=== PATIENT | female | born 1980 | race Caucasian/White ===

== ENCOUNTER 2016-10-21 09:37 | Observation (INO) | payer OTHER ==
[~2016-10-21] VITALS: Ht 175.3 cm; Wt 145.4 kg
[~2016-10-21 09:37] MED LIST: ADULT LOW DOSE81 M1 PO; AFRIN,GENASAL D15 ML BOTH NARES; AMITRIPTYLINE H25 MG PO; AMITRIPTYLINE H75 MG PO; ANAPROX DS550 M1 PO; ASACOL HD800 MG PO; ASPIR 8181 M1 PO; AUGMENTIN875 MG PO; BENICAR5 MG PO; BENTYL10 MG PO; BENTYL20 MG PO; BUTALB-APAP-CA1 EACH PO; CLONAZEPAM1 MG PO; COUMADIN1 MG PO; COUMADIN5 MG PO; CYCLOBENZAPRINE10 MG PO; Coumadin,Jantoven PO; DAILY VITE1 EAC1 PO; DICYCLOMINE HCL10 MG PO; DICYCLOMINE HCL20 MG PO; DILAUDID1 MG/ML IV; DILAUDID4 MG PO; ENDOCET 5-3251 EACH PO; FIORICET WI1 CAPSULE PO; FLAGYL500 MG PO; FLEXERIL10 MG PO; GABAPENTIN300 MG PO; GENERLAC10 GM/15 M PO; HYDROCHLOROTH12.5 M3 PO; HYDROMORPHONE HC4 MG PO; IBUPROFEN800 MG PO; KLONOPIN1 MG PO; LIDODERM 5% P1 PATCH TD; LO-DOSE ASPIRIN81 M2 PO; LOSARTAN-HCTZ1 EAC1; LOVENOX120 MG/0.8; LOVENOX150 MG/1 M SC; LOVENOX40 MG/0.4 SC; Lovenox SC; MS CONTIN,ORAMO15 M1 PO; NOHOMEMEDS; NORCO 5/3251 TABLET PO; NORCO 7.5/321 TABLET PO; OMEPRAZOLE20 MG PO; OXYCODONE-APAP1 EACH PO; PANTOPRAZOLE SO40 MG PO; PENTASA250 MG PO; PERCOCET 5/31 TABLET PO; PREDNISONE10 MG PO; PREDNISONE20 MG PO; PROZAC20 MG PO; SENNA PLUS TAB1 EACH PO; SIMVASTATIN20 MG PO; TESSALON PERLE100 MG PO; TOPAMAX50 MG; TYLENOL WITH C1 EACH PO; ULTRAM50 MG PO; VENTOLIN HFA18 GM IH; VIBRAMYCIN100 MG PO; VICODIN,LORT1 TABLET PO; WARFARIN SODIUM10 MG; WARFARIN SODIUM10 MG PO; ZOFRAN ODT4 MG PO; ZOFRAN ODT8 MG PO; ZOFRAN8 MG PO
[2016-10-21 10:06] LABS: ADD MIUA? YES; BILIRUBIN NEGATIVE; BLOOD TRACE; COLOR YELLOW ((YELLOW)); GLUCOSE (STRIP) NEGATIVE; KETONES NEGATIVE; LEUKOCYTES NEGATIVE; NITRITE NEGATIVE; PROTEIN (STRIP) NEGATIVE; SPECIFIC GRAVITY 1.024 (1.000-1.030); UROBILINOGEN 0.2 MG/DL (0.2-1.0)
[2016-10-21 10:19] LABS: BACTERIA 1+; CASTS NONE SEEN /LPF; CRYSTALS NONE SEEN; EPITHELIAL CELLS 2+; MUCUS NONE SEEN; PATHOLOGICAL CAST NONE SEEN; RED BLOOD CELLS 0-5 /HPF (0-5); SMALL ROUND CELL NONE SEEN; UCUL ADDED? NO; WHITE BLOOD CELLS 0-5 /HPF (0-5); YEAST-LIKE CELL NONE SEEN
[2016-10-21 10:47] LABS: INTER. NORMALIZED RATIO 1.1; PROTHROMBIN TIME 10.8 (9.2-11.2); PTT 27.1 (25-32)
[2016-10-21 10:49] LABS: HEMATOCRIT 38.6 % (36.0-46.0); MCH 29.2 PG (29.0-34.0); MCHC 33.4 G/DL (30.0-36.0); MCV 87.3 FL (83-99); MEAN PLAT.VOLUME 9.7 uM^3 (9.5-12.4); PLATELET COUNT 368 K/uL (156-360); RBC DIS.WIDTH-CV 14.4 % (11.8-14.6); RBC DIS.WIDTH-SD 45.7 % (39-53); RED BLOOD COUNT 4.42 M/uL (3.80-5.20); WHITE BLOOD COUNT 9.4 K/uL (4.1-10.2)
[2016-10-21 10:50] LABS: CHLORIDE 104 mEq/L (99-109); POTASSIUM 4.1 mEq/L (3.7-5.4); SODIUM 136 mEq/L (136-147)
[2016-10-21 10:53] LABS: GLUCOSE 129 mg/dL (70-99)
[2016-10-21 10:54] LABS: ANION GAP 11 MEQ/L (2-14)
[2016-10-21 10:55] LABS: TOTAL BILIRUBIN 0.3 mg/dL (0.0-1.0)
[2016-10-21 10:56] LABS: ALKALINE PHOSPHATASE 60 IU/L (3-129); GFR ESTIMATE (CALCULATED) > 59 mL/min/
[2016-10-21 10:57] LABS: UREA NITROGEN (BUN) 14 mg/dL (9-23)
[2016-10-21 11:09] LABS: QUANTITATIVE HCG < 4.0 MIU/ML
[2016-10-21 12:39] LABS: INFLUENZA A VIRAL ANTIGEN NEGATIVE; INFLUENZA B VIRAL ANTIGEN NEGATIVE
[2016-10-21] MEDS ORDERED: DIAZEPAM5 MG PO (16:06)
[2016-10-21] MEDS ORDERED: LITHIUM CARBON300 MG PO (16:06)
[2016-10-21] MEDS ORDERED: ASACOL HD800 MG PO (16:06)
[2016-10-21] MEDS ORDERED: PROTONIX40 MG PO (16:06)
[2016-10-21] MEDS ORDERED: OXYCODONE HCL5 MG PO (16:06)
[2016-10-21 21:12] VITALS: BP 137/78
[2016-10-22 04:31] VITALS: BP 134/60
[2016-10-22 06:18] LABS: INTER. NORMALIZED RATIO 1.1; PROTHROMBIN TIME 11.5 (9.2-11.2)
[2016-10-22 06:38] LABS: ANION GAP 12 MEQ/L (2-14); CHLORIDE 107 MEQ/L (99-109); GFR ESTIMATE (CALCULATED) > 59 mL/min/; GLUCOSE 108 mg/dL (70-99); SAMPLE HEMOLYSIS CHECK 0; SAMPLE ICTERIC CHECK 0; SAMPLE LIPEMIA CHECK 0; SODIUM 137 MEQ/L (136-147); UREA NITROGEN (BUN) 17 mg/dL (9-23)
[2016-10-22 08:45] VITALS: BP 130/72
[2016-10-22 12:53] VITALS: BP 132/65
[2016-10-22 16:15] VITALS: BP 138/75
[2016-10-22 20:00] VITALS: BP 133/70
[2016-10-23 04:54] VITALS: BP 139/66
[2016-10-23 06:26] LABS: INTER. NORMALIZED RATIO 1.2; PROTHROMBIN TIME 12.6 (9.2-11.2)
[2016-10-23 08:55] VITALS: BP 135/65
[2016-10-23 12:04] VITALS: BP 125/68
[2016-10-23] MEDS ORDERED: PRAVASTATIN SOD40 MG PO (12:49)
[2016-10-23] MEDS ORDERED: OXYCODONE-APAP1 EACH PO (12:49)
[2016-10-23] MEDS ORDERED: TOPIRAMATE25 MG PO (12:49)
[2016-10-23] MEDS ORDERED: LOVENOX150 MG/1 M SC (13:10)
[2016-10-23] MEDS ORDERED: COUMADIN10 MG PO (13:10)
[2016-10-23] MEDS ORDERED: COUMADIN2.5 MG PO (13:10)
== END 2016-10-23 14:58 | disposition home or self-care (01) ==
LOC: EME 09:37 → EDOF 15:58 → 5WEST 15:58
PROVIDERS: Family Medicine; Hospitalist; Nurse Practitioner Family
DX: G43.019 Migraine without aura, intractable, without status migrainosus (principal); R55 Syncope and collapse; G89.29 Other chronic pain; R10.13 Epigastric pain; K52.9 Noninfective gastroenteritis and colitis, unspecified; I69.354 Hemiplegia and hemiparesis following cerebral infarction affecting left non-dominant side; M32.9 Systemic lupus erythematosus, unspecified; D68.61 Antiphospholipid syndrome; Z79.01 Long term (current) use of anticoagulants; Z87.891 Personal history of nicotine dependence; E66.9 Obesity, unspecified; Z68.42 Body mass index [BMI] 45.0-49.9, adult; G40.909 Epilepsy, unspecified, not intractable, without status epilepticus
CPT/HCPCS: 70450; 70544; 80048; 80053; 81003; 84702; 85027; 85610; 85730; 87502; 87641; 93306; 99202; 99281; 99285; G0378; J1170; J1200; J1650; J1885; J2270; J2765; J2930; J7030

== ENCOUNTER 2017-01-17 14:29 | Emergency (ER) | payer OTHER ==
[~2017-01-17] VITALS: Ht 175.3 cm; Wt 143.4 kg
[~2017-01-17 14:29] MED LIST changes: +COUMADIN10 MG PO; +COUMADIN2.5 MG PO; +DIAZEPAM5 MG PO; +LITHIUM CARBON300 MG PO; +OXYCODONE HCL5 MG PO; +PRAVASTATIN SOD40 MG PO; +PROTONIX40 MG PO; +TOPIRAMATE25 MG PO
[2017-01-17] MEDS ORDERED: NAPROSYN500 MG PO (17:13)
[2017-01-17 17:34] VITALS: BP 149/91
== END 2017-01-17 17:44 | disposition home or self-care (01) ==
LOC: EME 14:29
DX: S93.601A Unspecified sprain of right foot, initial encounter (principal); S93.501A Unspecified sprain of right great toe, initial encounter; X50.0XXA Overexertion from strenuous movement or load, initial encounter
CPT/HCPCS: 73630; 99281; 99284

== ENCOUNTER 2017-03-21 21:38 | Inpatient (IN) | payer OTHER ==
[~2017-03-21] VITALS: Ht 175.3 cm; Wt 148.8 kg
[~2017-03-21 21:38] MED LIST changes: +NAPROSYN500 MG PO
[2017-03-21 22:26] LABS: CREATININE 0.8 mg/dL (0.6-1.3); POTASSIUM 3.6 mEq/L (3.7-5.4)
[2017-03-21 22:34] LABS: BASOPHIL COUNT 0.1 K/uL (0-0.1); EOSINOPHIL (%) 1.3 % (0-5); EOSINOPHIL COUNT 0.2 K/uL (0-0.3); HEMATOCRIT 37.2 % (36.0-46.0); IMMATURE GRANULOCYTE (%) 0.5 % (0.0-0.7); IMMATURE GRANULOCYTE COUNT 0.1 K/uL; LYMPHOCYTE COUNT 3.6 K/uL (1.0-2.8); MCH 27.6 PG (29.0-34.0); MCHC 32.3 G/DL (30.0-36.0); MCV 85.5 FL (83-99); MEAN PLAT.VOLUME 9.1 uM^3 (9.5-12.4); MONOCYTE (%) 9.2 % (3-12); MONOCYTE COUNT 1.1 K/uL (0-0.8); NEUTROPHIL (%) 58.5 % (45-76); PLATELET COUNT 394 K/uL (156-360); RBC DIS.WIDTH-CV 12.8 % (11.8-14.6); RBC DIS.WIDTH-SD 39.6 % (39-53); RED BLOOD COUNT 4.35 M/uL (3.80-5.20)
[2017-03-21 22:51] LABS: CHLORIDE 106 mEq/L (99-109); PROTHROMBIN TIME 9.8 (9.2-11.2); PTT 25.6 (25-32); SODIUM 139 mEq/L (136-147)
[2017-03-21 22:53] LABS: GLUCOSE 98 mg/dL (70-99)
[2017-03-21 22:54] LABS: ANION GAP 10 MEQ/L (2-14)
[2017-03-21 22:56] LABS: GFR ESTIMATE (CALCULATED) > 59 mL/min/
[2017-03-21 22:57] LABS: UREA NITROGEN (BUN) 16 mg/dL (9-23)
[2017-03-21 23:13] LABS: HDL CHOLESTEROL 39 MG/DL (Desirable>=50); LDL CHOLESTEROL 117 mg/dL (Desirable<100); NON-HDL CHOLESTEROL 149 mg/dL (Desirable<160); SAMPLE HEMOLYSIS CHECK 1; SAMPLE ICTERIC CHECK 0; SAMPLE LIPEMIA CHECK 0; TOTAL CHOLESTEROL 188 mg/dL (Desirable<200); TRIGLYCERIDES 162 MG/DL (Normal: <150)
[2017-03-22] MEDS ORDERED: LITHIUM CARBON600 MG PO (00:53)
[2017-03-22] MEDS ORDERED: ALPRAZOLAM1 MG PO (00:53)
[2017-03-22 04:40] LABS: AMPHETAMINES QUANT VALUE 0 NG/ML; BARBITUATES QUANT VALUE 0 NG/ML; BENZODIAZEPINES, URINE SCREEN POSITIVE (200 ng/mL); MARIJUANA QUANT VALUE 0 NG/ML; OPIATES QUANTITATIVE VALUE 0 NG/ML; PHENCYCLIDINE QUANT VALUE 0 NG/ML
[2017-03-22 06:41] LABS: Estimated Average Glucose 111 mg/dL (70-123); HEMOGLOBIN A1c (GLYCOHEMOGLOB) 5.5 % HGB (Below 5.7)
[2017-03-22 14:44] VITALS: BP 135/83
[2017-03-22 19:40] VITALS: BP 132/70
[2017-03-22 23:39] VITALS: BP 141/72
[2017-03-23 03:29] VITALS: BP 114/65
[2017-03-23 06:06] LABS: BASOPHIL COUNT 0.1 K/uL (0-0.1); EOSINOPHIL (%) 2.1 % (0-5); EOSINOPHIL COUNT 0.2 K/uL (0-0.3); HEMATOCRIT 35.4 % (36.0-46.0); IMMATURE GRANULOCYTE (%) 0.4 % (0.0-0.7); INSTRUMENT ABS NEUTROPHIL CT 4.6 K/uL; LYMPHOCYTE COUNT 3.9 K/uL (1.0-2.8); MCH 28.1 PG (29.0-34.0); MCHC 32.5 G/DL (30.0-36.0); MCV 86.6 FL (83-99); MEAN PLAT.VOLUME 9.2 uM^3 (9.5-12.4); MONOCYTE (%) 7.2 % (3-12); MONOCYTE COUNT 0.7 K/uL (0-0.8); NEUTROPHIL (%) 48.6 % (45-76); NEUTROPHIL COUNT 4.6 K/uL (1.8-6.4); PLATELET COUNT 365 K/uL (156-360); RBC DIS.WIDTH-SD 40.5 % (39-53); RED BLOOD COUNT 4.09 M/uL (3.80-5.20); WHITE BLOOD COUNT 9.5 K/uL (4.1-10.2)
[2017-03-23 06:31] LABS: ANION GAP 6 MEQ/L (2-14); CHLORIDE 105 MEQ/L (99-109); GFR ESTIMATE (CALCULATED) > 59 mL/min/; GLUCOSE 85 mg/dL (70-99); MAGNESIUM 1.9 mg/dl (1.3-2.7); SAMPLE HEMOLYSIS CHECK 0; SAMPLE ICTERIC CHECK 0; SAMPLE LIPEMIA CHECK 0; SODIUM 138 MEQ/L (136-147); UREA NITROGEN (BUN) 16 mg/dL (9-23)
[2017-03-23 08:23] VITALS: BP 117/84
[2017-03-23] MEDS ORDERED: PRAVASTATIN SOD40 MG PO (09:59)
[2017-03-23] MEDS ORDERED: ASPIR-LOW81 MG PO (09:59)
[2017-03-23] MEDS ORDERED: TOPIRAMATE25 MG PO (10:00)
[2017-03-23 11:54] VITALS: BP 122/83
== END 2017-03-23 15:13 | disposition home or self-care (01) | DRG 103 ==
LOC: EME 21:38 → EDOF 03-22 01:25 → 5SOUTH 03-22 01:25
PROVIDERS: Emergency Medicine; Hospitalist; Internal Medicine
DX: G43.009 Migraine without aura, not intractable, without status migrainosus (principal); G40.909 Epilepsy, unspecified, not intractable, without status epilepticus; E66.01 Morbid (severe) obesity due to excess calories; I10 Essential (primary) hypertension; E78.5 Hyperlipidemia, unspecified; G89.4 Chronic pain syndrome; R47.82 Fluency disorder in conditions classified elsewhere; M06.9 Rheumatoid arthritis, unspecified; F11.20 Opioid dependence, uncomplicated; R76.0 Raised antibody titer; G93.89 Other specified disorders of brain; Z79.01 Long term (current) use of anticoagulants; Z68.42 Body mass index [BMI] 45.0-49.9, adult; I69.354 Hemiplegia and hemiparesis following cerebral infarction affecting left non-dominant side
CPT/HCPCS: 70450; 70496; 70498; 70551; 80047; 80048; 80061; 80178; 80306 90; 83036; 83735; 85025; 85610; 85730; 92523 GN; 95819; 99202; 99281; 99285; J1200; J1650; J1885; J2765; J7030

== ENCOUNTER 2017-05-29 14:30 | Inpatient (IN) | payer OTHER ==
[~2017-05-29] VITALS: Ht 175.3 cm; Wt 143.0 kg
[~2017-05-29 14:30] MED LIST changes: +ALPRAZOLAM1 MG PO; +ASPIR-LOW81 MG PO; +LITHIUM CARBON600 MG PO
[2017-05-29 16:37] LABS: HEMATOCRIT 36.9 % (36.0-46.0); MCHC 31.4 G/DL (30.0-36.0); PLATELET COUNT 436 K/uL (156-360); RBC DIS.WIDTH-CV 13.9 % (11.8-14.6); RED BLOOD COUNT 4.29 M/uL (3.80-5.20); WHITE BLOOD COUNT 12.9 K/uL (4.1-10.2)
[2017-05-29 16:46] LABS: CHLORIDE 105 mEq/L (99-109); POTASSIUM 3.9 mEq/L (3.7-5.4); SODIUM 139 mEq/L (136-147)
[2017-05-29 16:48] LABS: GLUCOSE 97 mg/dL (70-99)
[2017-05-29 16:50] LABS: ANION GAP 11 MEQ/L (2-14)
[2017-05-29 16:52] LABS: GFR ESTIMATE (CALCULATED) > 59 mL/min/
[2017-05-29 16:53] LABS: UREA NITROGEN (BUN) 13 mg/dL (9-23)
[2017-05-29 17:00] LABS: TROP-I INTERPRETATION NEGATIVE; TROPONIN-I < 0.01 ng/mL (0.0-0.30)
[2017-05-29 20:19] LABS: PROTHROMBIN TIME 10.9 SEC (10.2-12.9)
[2017-05-29 20:22] LABS: PTT 26.8 SEC (25-37)
[2017-05-29 20:41] LABS: HDL CHOLESTEROL 42 MG/DL (Desirable>=50); LDL CHOLESTEROL 114 mg/dL (Desirable<100); NON-HDL CHOLESTEROL 144 mg/dL (Desirable<160); TOTAL CHOLESTEROL 186 mg/dL (Desirable<200); TRIGLYCERIDES 149 MG/DL (Normal: <150)
[2017-05-29 21:25] VITALS: BP 170/86
[2017-05-30] VITALS: BP 132/70
[2017-05-30 03:53] VITALS: BP 150/67
[2017-05-30 06:37] LABS: HEMATOCRIT 35.6 % (36.0-46.0); MCH 27.6 PG (29.0-34.0); MCHC 31.7 G/DL (30.0-36.0); MEAN PLAT.VOLUME 9.4 uM^3 (9.5-12.4); PLATELET COUNT 413 K/uL (156-360); RBC DIS.WIDTH-CV 13.8 % (11.8-14.6); RBC DIS.WIDTH-SD 43.1 % (39-53); RED BLOOD COUNT 4.09 M/uL (3.80-5.20); WHITE BLOOD COUNT 11.1 K/uL (4.1-10.2)
[2017-05-30 06:45] LABS: INTER. NORMALIZED RATIO 1.1; PROTHROMBIN TIME 11.7 SEC (10.2-12.9)
[2017-05-30 07:12] LABS: Estimated Average Glucose 108 mg/dL (70-123); HEMOGLOBIN A1c (GLYCOHEMOGLOB) 5.4 % HGB (Below 5.7)
[2017-05-30 08:32] VITALS: BP 130/77
[2017-05-30] MEDS ORDERED: BUPROPION XL150 MG PO (14:17)
[2017-05-30] MEDS ORDERED: OXYCODONE HCL5 MG PO (14:17)
[2017-05-30 17:42] VITALS: BP 133/72
[2017-05-30 19:45] VITALS: BP 141/78
[2017-05-31 00:15] VITALS: BP 146/85
[2017-05-31 06:38] LABS: BASOPHIL COUNT 0.1 K/uL (0-0.1); EOSINOPHIL (%) 2.9 % (0-5); EOSINOPHIL COUNT 0.3 K/uL (0-0.3); HEMATOCRIT 37.3 % (36.0-46.0); IMMATURE GRANULOCYTE (%) 0.5 % (0.0-0.7); IMMATURE GRANULOCYTE COUNT 0.1 K/uL; INSTRUMENT ABS NEUTROPHIL CT 5.7 K/uL; LYMPHOCYTE COUNT 4.2 K/uL (1.0-2.8); MCH 27.6 PG (29.0-34.0); MCHC 32.2 G/DL (30.0-36.0); MCV 85.7 FL (83-99); MEAN PLAT.VOLUME 9.1 uM^3 (9.5-12.4); MONOCYTE (%) 7.5 % (3-12); MONOCYTE COUNT 0.8 K/uL (0-0.8); NEUTROPHIL (%) 50.8 % (45-76); NEUTROPHIL COUNT 5.7 K/uL (1.8-6.4); PLATELET COUNT 409 K/uL (156-360); RBC DIS.WIDTH-CV 13.5 % (11.8-14.6); RBC DIS.WIDTH-SD 41.9 % (39-53); RED BLOOD COUNT 4.35 M/uL (3.80-5.20); WHITE BLOOD COUNT 11.2 K/uL (4.1-10.2)
[2017-05-31 07:03] LABS: ANION GAP 9 MEQ/L (2-14); CHLORIDE 102 MEQ/L (99-109); GFR ESTIMATE (CALCULATED) > 59 mL/min/; GLUCOSE 88 mg/dL (70-99); IRON 31 MCG/DL (35-150); POTASSIUM 4.2 MEQ/L (3.7-5.4); SAMPLE HEMOLYSIS CHECK 0; SAMPLE ICTERIC CHECK 0; SAMPLE LIPEMIA CHECK 0; SODIUM 138 MEQ/L (136-147); UREA NITROGEN (BUN) 13 mg/dL (9-23)
[2017-05-31 07:50] VITALS: BP 130/64
[2017-05-31] MEDS ORDERED: CYCLOBENZAPRINE5 MG PO (11:23)
[2017-05-31] MEDS ORDERED: GABAPENTIN300 MG PO (11:24)
[2017-05-31 11:30] VITALS: BP 139/86
== END 2017-05-31 13:22 | disposition home or self-care (01) | DRG 103 ==
LOC: EME 14:30 → 5SOUTH 19:49 → EDOF 19:49 → ENRESERV 19:50 → CANRESERV 20:05 → ENRESERV 20:05 → 5SOUTH 21:16 → ENRESERV 21:16 → 5SOUTH 05-31 13:22
PROVIDERS: Anesthesiology; Emergency Medicine; Hospitalist; Nurse Practitioner Adult Health
DX: G43.919 Migraine, unspecified, intractable, without status migrainosus (principal); D68.61 Antiphospholipid syndrome; R47.81 Slurred speech; G93.89 Other specified disorders of brain; G40.909 Epilepsy, unspecified, not intractable, without status epilepticus; D64.9 Anemia, unspecified; K58.9 Irritable bowel syndrome, unspecified; I25.10 Atherosclerotic heart disease of native coronary artery without angina pectoris; H53.8 Other visual disturbances; M54.2 Cervicalgia; M54.6 Pain in thoracic spine; M79.1 Myalgia; E66.9 Obesity, unspecified; Z68.42 Body mass index [BMI] 45.0-49.9, adult; F17.200 Nicotine dependence, unspecified, uncomplicated; Z79.01 Long term (current) use of anticoagulants; Z79.82 Long term (current) use of aspirin; Z82.49 Family history of ischemic heart disease and other diseases of the circulatory system; Z86.73 Personal history of transient ischemic attack (TIA), and cerebral infarction without residual deficits; Z91.19 Patient's noncompliance with other medical treatment and regimen
CPT/HCPCS: 70450; 70551; 80048; 80061; 82272; 83036; 83540; 84466; 84484; 85025; 85027; 85610; 85730; 93005; 93880; 99281; 99283; J1200; J1650; J2765; J7030

== ENCOUNTER 2017-07-10 18:03 | Emergency (ER) | payer OTHER ==
[~2017-07-10] VITALS: Ht 175.3 cm; Wt 148.7 kg
[~2017-07-10 18:03] MED LIST changes: +BUPROPION XL150 MG PO; +CYCLOBENZAPRINE5 MG PO
[2017-07-10] MEDS ORDERED: VALIUM5 MG PO (19:11)
[2017-07-10] MEDS ORDERED: PREDNISONE10 MG PO (19:11)
[2017-07-10 19:19] VITALS: BP 130/78
== END 2017-07-10 19:20 | disposition home or self-care (01) ==
LOC: EME 18:03
DX: M54.41 Lumbago with sciatica, right side (principal); D68.61 Antiphospholipid syndrome; M06.9 Rheumatoid arthritis, unspecified; F17.200 Nicotine dependence, unspecified, uncomplicated
CPT/HCPCS: 99281; 99283; J1100; J1885

== ENCOUNTER 2017-11-19 15:51 | Inpatient (IN) | payer OTHER ==
[~2017-11-19] VITALS: Ht 172.7 cm; Wt 147.5 kg
[~2017-11-19 15:51] MED LIST changes: -BUPROPION XL150 MG PO; +VALIUM5 MG PO; +WELLBUTRIN XL300 MG PO
[2017-11-19 16:52] LABS: BASOPHIL (%) 1.1 % (0-1); BASOPHIL COUNT 0.1 K/uL (0-0.1); EOSINOPHIL (%) 0.4 % (0-5); HEMATOCRIT 33.6 % (36.0-46.0); HEMOGLOBIN 10.1 G/DL (11.9-15.5); IMMATURE GRANULOCYTE (%) 0.2 % (0.0-0.7); LYMPHOCYTE (%) 33.5 % (15-42); LYMPHOCYTE COUNT 1.5 K/uL (1.0-2.8); MCH 23.8 PG (29.0-34.0); MCHC 30.1 G/DL (30.0-36.0); MCV 79.2 FL (83-99); MONOCYTE (%) 15.6 % (3-12); MONOCYTE COUNT 0.7 K/uL (0-0.8); NEUTROPHIL (%) 49.2 % (45-76); NEUTROPHIL COUNT 2.2 K/uL (1.8-6.4); PLATELET COUNT 369 K/uL (156-360); RBC DIS.WIDTH-CV 14.9 % (11.8-14.6); RBC DIS.WIDTH-SD 42.8 % (39-53); RED BLOOD COUNT 4.24 M/uL (3.80-5.20); WHITE BLOOD COUNT 4.5 K/uL (4.1-10.2)
[2017-11-19 17:08] LABS: ALBUMIN 3.6 G/DL (3.2-4.8); CHLORIDE 105 MEQ/L (99-109); POTASSIUM 3.9 MEQ/L (3.7-5.4); SODIUM 139 MEQ/L (136-147); TOTAL BILIRUBIN 0.3 MG/DL (0.0-1.0)
[2017-11-19 17:14] LABS: ALKALINE PHOSPHATASE 48 IU/L (3-129); ALT (GPT) 24 IU/L (3-49); AST (GOT) 20 IU/L (2-34); CREATININE 0.7 MG/DL (0.6-1.3); GFR ESTIMATE (CALCULATED) > 59 mL/min/; GLUCOSE 91 mg/dL (70-99); TOTAL PROTEIN 6.5 G/DL (6.4-8.3); UREA NITROGEN (BUN) 9 mg/dL (9-23)
[2017-11-19 17:18] LABS: QUANTITATIVE HCG < 4.0 MIU/ML
[2017-11-19] MEDS ORDERED: PRAVACHOL40 MG PO (20:17)
[2017-11-19] MEDS ORDERED: TOPAMAX50 MG PO (20:18)
[2017-11-19] MEDS ORDERED: AMBIEN5 MG PO (20:19)
[2017-11-19 20:39] LABS: TROP-I INTERPRETATION NEGATIVE; TROPONIN-I < 0.01 ng/mL (0.0-0.30)
[2017-11-19 23:40] VITALS: BP 139/91
[2017-11-20 02:35] LABS: APPEARANCE SL.HAZY ((CLEAR)); BILIRUBIN NEGATIVE; BLOOD NEGATIVE; COLOR YELLOW ((YELLOW)); GLUCOSE (STRIP) >=500; KETONES 5; LEUKOCYTES NEGATIVE; NITRITE NEGATIVE; PROTEIN (STRIP) 30; UROBILINOGEN 0.2 MG/DL (0.2-1.0)
[2017-11-20 02:49] LABS: SPECIFIC GRAVITY 1.071 (1.000-1.030)
[2017-11-20 02:52] LABS: EPITHELIAL CELLS RARE /HPF; MUCUS RARE /LPF; RED BLOOD CELLS NONE SEEN /HPF (0-5); WHITE BLOOD CELLS 0-5 /HPF (0-5)
[2017-11-20 02:53] LABS: BACTERIA 1+ /HPF; UCUL ADDED? NO
[2017-11-20 03:24] VITALS: BP 111/56
[2017-11-20 07:05] LABS: BASOPHIL (%) 0.4 % (0-1); EOSINOPHIL (%) 0 % (0-5); HEMATOCRIT 35.8 % (36.0-46.0); HEMOGLOBIN 10.5 G/DL (11.9-15.5); IMMATURE GRANULOCYTE (%) 1.3 % (0.0-0.7); LYMPHOCYTE (%) 16.4 % (15-42); LYMPHOCYTE COUNT 0.9 K/uL (1.0-2.8); MCH 23.8 PG (29.0-34.0); MCHC 29.3 G/DL (30.0-36.0); MONOCYTE (%) 3.2 % (3-12); MONOCYTE COUNT 0.2 K/uL (0-0.8); NEUTROPHIL (%) 78.7 % (45-76); NEUTROPHIL COUNT 4.2 K/uL (1.8-6.4); PLATELET COUNT 462 K/uL (156-360); RBC DIS.WIDTH-CV 14.8 % (11.8-14.6); RBC DIS.WIDTH-SD 43.6 % (39-53); RED BLOOD COUNT 4.42 M/uL (3.80-5.20); WHITE BLOOD COUNT 5.4 K/uL (4.1-10.2)
[2017-11-20 07:35] LABS: CHLORIDE 106 MEQ/L (99-109); CREATININE 0.6 MG/DL (0.6-1.3); GFR ESTIMATE (CALCULATED) > 59 mL/min/; SODIUM 141 MEQ/L (136-147); UREA NITROGEN (BUN) 11 mg/dL (9-23)
[2017-11-20 07:36] LABS: GLUCOSE 138 mg/dL (70-99); POTASSIUM 4.7 MEQ/L (3.7-5.4)
[2017-11-20 08:00] VITALS: BP 130/72
[2017-11-20 12:00] VITALS: BP 122/58
[2017-11-20 16:00] VITALS: BP 127/77
[2017-11-20 23:15] VITALS: BP 129/60
[2017-11-21 05:58] LABS: BASOPHIL (%) 0.1 % (0-1); EOSINOPHIL (%) 0 % (0-5); HEMOGLOBIN 10.1 G/DL (11.9-15.5); IMMATURE GRANULOCYTE (%) 0.9 % (0.0-0.7); LYMPHOCYTE (%) 15.1 % (15-42); LYMPHOCYTE COUNT 1.6 K/uL (1.0-2.8); MCH 23.8 PG (29.0-34.0); MCHC 29.7 G/DL (30.0-36.0); MONOCYTE (%) 4.9 % (3-12); MONOCYTE COUNT 0.5 K/uL (0-0.8); NEUTROPHIL COUNT 8.2 K/uL (1.8-6.4); PLATELET COUNT 491 K/uL (156-360); RBC DIS.WIDTH-CV 14.7 % (11.8-14.6); RBC DIS.WIDTH-SD 42.5 % (39-53); RED BLOOD COUNT 4.25 M/uL (3.80-5.20); WHITE BLOOD COUNT 10.4 K/uL (4.1-10.2)
[2017-11-21 06:42] LABS: CHLORIDE 107 MEQ/L (99-109); CREATININE 0.7 MG/DL (0.6-1.3); GFR ESTIMATE (CALCULATED) > 59 mL/min/; POTASSIUM 4.3 MEQ/L (3.7-5.4); SODIUM 143 MEQ/L (136-147); UREA NITROGEN (BUN) 10 mg/dL (9-23)
[2017-11-21 06:44] LABS: GLUCOSE 219 mg/dL (70-99)
[2017-11-21 07:05] VITALS: BP 138/65
[2017-11-21 16:13] VITALS: BP 165/86
[2017-11-21 22:33] VITALS: BP 137/78
[2017-11-22 07:59] VITALS: BP 168/74
[2017-11-22 15:28] VITALS: BP 145/78
[2017-11-22 20:00] VITALS: BP 140/70
[2017-11-22 23:57] VITALS: BP 130/77
[2017-11-23 03:52] VITALS: BP 135/78
[2017-11-23 08:53] VITALS: BP 132/78
[2017-11-23 12:00] VITALS: BP 119/56
[2017-11-23] MEDS ORDERED: AMOX TR-K CLV1 EAC4 PO (13:01)
[2017-11-23] MEDS ORDERED: OSELTAMIVIR PHO75 MG PO (13:01)
[2017-11-23] MEDS ORDERED: DUONEB 2.5-0.5 M3 ML AEROSOL (13:03)
[2017-11-23] MEDS ORDERED: PREDNISONE5 MG PO (13:03)
== END 2017-11-23 16:04 | disposition home health service (06) | DRG 193 ==
LOC: EME 15:51 → EDOF 20:30 → 2EAST 20:30 → ENRESERV 20:33 → 2EAST 22:34
PROVIDERS: Emergency Medicine; Hospitalist
DX: J10.08 Influenza due to other identified influenza virus with other specified pneumonia (principal); J12.9 Viral pneumonia, unspecified; J15.9 Unspecified bacterial pneumonia; J96.01 Acute respiratory failure with hypoxia; J10.1 Influenza due to other identified influenza virus with other respiratory manifestations; J20.9 Acute bronchitis, unspecified; D68.61 Antiphospholipid syndrome; G40.909 Epilepsy, unspecified, not intractable, without status epilepticus; G47.33 Obstructive sleep apnea (adult) (pediatric); F41.9 Anxiety disorder, unspecified; E66.01 Morbid (severe) obesity due to excess calories; Z68.42 Body mass index [BMI] 45.0-49.9, adult; Z79.01 Long term (current) use of anticoagulants; Z86.73 Personal history of transient ischemic attack (TIA), and cerebral infarction without residual deficits
CPT/HCPCS: 71046; 71275; 74176; 80048; 80053; 81003; 83605; 84484; 84702; 85025; 87040; 87449; 87502; 93005; 94640; 94640 76; 94799; 99202; 99281; 99284; J0456; J0696; J1650; J2930; J3370; J7030; J7512; J7644

== ENCOUNTER 2018-01-26 19:41 | Emergency (ER) | payer OTHER ==
[~2018-01-26] VITALS: Ht 172.7 cm; Wt 151.0 kg
[~2018-01-26 19:41] MED LIST changes: +AMBIEN5 MG PO; +AMOX TR-K CLV1 EAC4 PO; +DUONEB 2.5-0.5 M3 ML AEROSOL; +OSELTAMIVIR PHO75 MG PO; +PRAVACHOL40 MG PO; +PREDNISONE5 MG PO; +TOPAMAX50 MG PO
[2018-01-26 20:20] LABS: HEMATOCRIT 38.4 % (36.0-46.0); HEMOGLOBIN 12.5 G/DL (11.9-15.5); MCH 27.9 PG (29.0-34.0); MCHC 32.6 G/DL (30.0-36.0); MCV 85.7 FL (83-99); PLATELET COUNT 401 K/uL (156-360); RBC DIS.WIDTH-CV 18.1 % (11.8-14.6); RBC DIS.WIDTH-SD 56.2 % (39-53); RED BLOOD COUNT 4.48 M/uL (3.80-5.20); WHITE BLOOD COUNT 11.7 K/uL (4.1-10.2)
[2018-01-26 20:35] LABS: ALBUMIN 4.1 g/dL (3.2-4.8); CHLORIDE 102 mEq/L (99-109); POTASSIUM 4.4 mEq/L (3.7-5.4); SODIUM 141 mEq/L (136-147)
[2018-01-26 20:37] LABS: GLUCOSE 97 mg/dL (70-99); TOTAL PROTEIN 7.5 g/dL (6.4-8.3)
[2018-01-26 20:39] LABS: TOTAL BILIRUBIN 0.4 mg/dL (0.0-1.0)
[2018-01-26 20:41] LABS: ALKALINE PHOSPHATASE 62 IU/L (3-129); CREATININE 0.8 mg/dL (0.6-1.3); GFR ESTIMATE (CALCULATED) > 59 mL/min/
[2018-01-26 20:42] LABS: QUANTITATIVE HCG < 4.0 MIU/ML; UREA NITROGEN (BUN) 13 mg/dL (9-23)
[2018-01-26 20:43] LABS: AST (GOT) 25 IU/L (2-34)
[2018-01-26 20:44] LABS: ALT (GPT) 40 IU/L (3-49)
[2018-01-26 22:54] LABS: LIPASE 21 U/L (1.0-51.0)
[2018-01-27 00:53] LABS: APPEARANCE SL.HAZY ((CLEAR)); BILIRUBIN NEGATIVE; BLOOD NEGATIVE; COLOR YELLOW ((YELLOW)); GLUCOSE (STRIP) NEGATIVE; KETONES NEGATIVE; LEUKOCYTES NEGATIVE; NITRITE NEGATIVE; PROTEIN (STRIP) NEGATIVE; UROBILINOGEN 0.2 MG/DL (0.2-1.0)
[2018-01-27 00:58] LABS: BACTERIA NONE SEEN /HPF; EPITHELIAL CELLS 2+ /HPF; MUCUS TRACE /LPF; RED BLOOD CELLS 0-5 /HPF (0-5); UCUL ADDED? NO; WHITE BLOOD CELLS 0-5 /HPF (0-5)
[2018-01-27] MEDS ORDERED: BENTYL10 MG PO (01:55)
[2018-01-27] MEDS ORDERED: ZOFRAN4 MG PO (01:55)
[2018-01-27 01:59] VITALS: BP 130/89
== END 2018-01-27 02:00 | disposition home or self-care (01) ==
LOC: EME 19:41
DX: R10.12 Left upper quadrant pain (principal); M32.9 Systemic lupus erythematosus, unspecified; D68.61 Antiphospholipid syndrome; R56.9 Unspecified convulsions; G43.909 Migraine, unspecified, not intractable, without status migrainosus; F31.9 Bipolar disorder, unspecified; F41.9 Anxiety disorder, unspecified; F32.9 Major depressive disorder, single episode, unspecified; Z86.73 Personal history of transient ischemic attack (TIA), and cerebral infarction without residual deficits
CPT/HCPCS: 74177; 80053; 81003; 83690; 84702; 85027; 99281; 99284; J1885; J2405; J7030

== ENCOUNTER 2018-05-20 12:27 | Inpatient (IN) | payer OTHER ==
[~2018-05-20] VITALS: Ht 172.7 cm; Wt 158.9 kg
[~2018-05-20 12:27] MED LIST changes: +ZOFRAN4 MG PO
[2018-05-20 13:20] LABS: BASOPHIL (%) 0.6 % (0-1); BASOPHIL COUNT 0.1 K/uL (0-0.1); EOSINOPHIL (%) 2.7 % (0-5); EOSINOPHIL COUNT 0.3 K/uL (0-0.3); HEMOGLOBIN 10.9 G/DL (11.9-15.5); IMMATURE GRANULOCYTE (%) 0.7 % (0.0-0.7); LYMPHOCYTE (%) 21.1 % (15-42); LYMPHOCYTE COUNT 2.2 K/uL (1.0-2.8); MCH 27.5 PG (29.0-34.0); MCHC 31.1 G/DL (30.0-36.0); MCV 88.4 FL (83-99); MONOCYTE (%) 7.6 % (3-12); MONOCYTE COUNT 0.8 K/uL (0-0.8); NEUTROPHIL (%) 67.3 % (45-76); PLATELET COUNT 374 K/uL (156-360); RBC DIS.WIDTH-CV 14.1 % (11.8-14.6); RBC DIS.WIDTH-SD 45.3 % (39-53); RED BLOOD COUNT 3.96 M/uL (3.80-5.20); WHITE BLOOD COUNT 10.5 K/uL (4.1-10.2)
[2018-05-20 13:25] LABS: INTER. NORMALIZED RATIO 1.1
[2018-05-20 13:27] LABS: PTT 24.8 SEC (25-37)
[2018-05-20 13:32] LABS: ALBUMIN 3.6 g/dL (3.2-4.8); CHLORIDE 100 mEq/L (99-109); POTASSIUM 3.9 mEq/L (3.7-5.4); SODIUM 137 mEq/L (136-147)
[2018-05-20 13:34] LABS: GLUCOSE 142 mg/dL (70-99); TOTAL PROTEIN 6.5 g/dL (6.4-8.3)
[2018-05-20 13:36] LABS: TOTAL BILIRUBIN 0.5 mg/dL (0.0-1.0)
[2018-05-20 13:37] LABS: SERUM ETHYL ALCOHOL < 10 mg/dL
[2018-05-20 13:38] LABS: ALKALINE PHOSPHATASE 71 IU/L (3-129); CREATININE 0.7 mg/dL (0.6-1.3); GFR ESTIMATE (CALCULATED) > 59 mL/min/
[2018-05-20 13:39] LABS: UREA NITROGEN (BUN) 11 mg/dL (9-23)
[2018-05-20 13:40] LABS: AST (GOT) 23 IU/L (2-34); TROP-I INTERPRETATION NEGATIVE; TROPONIN-I < 0.01 ng/mL (0.0-0.30)
[2018-05-20 13:41] LABS: ALT (GPT) 33 IU/L (3-49)
[2018-05-20 13:41] LABS: DEVICE NC; O2 FLOW 2 L/MIN; PCO2 62 mm Hg (35-45); PO2 76 mm Hg (80-100); SITE LR; TOTAL RESP RATE 18 resp/min; pH 7.32 (7.35-7.45)
[2018-05-20 13:42] LABS: BASE EXCESS 4.4 mEq/L (-3 to +3); BICARBONATE 31.9 mEq/L (22-26); CARBOXY HGB 4.6 % (0-5); METHEMOGLOBIN 0.6 % (0-1.5)
[2018-05-20 13:47] LABS: QUANTITATIVE HCG < 4.0 MIU/ML
[2018-05-20 15:10] LABS: AMPHETAMINE NEGATIVE (500 ng/mL); BARBITURATES NEGATIVE (200 ng/mL); BENZODIAZEPINES NEGATIVE (150 ng/mL); BUPRENORPHINE NEGATIVE (10 ng/mL); COCAINE PRESUMPTIVE POSITIVE (150 ng/mL); METHADONE NEGATIVE (200 ng/mL); METHAMPHETAMINE NEGATIVE (500 ng/mL); OPIATES (MORPHINE) PRESUMPTIVE POSITIVE (100 ng/mL); OXYCODONE NEGATIVE (100 ng/mL); PHENCYCLIDINE NEGATIVE (25 ng/mL); PROPOXYPHENE NEGATIVE (300 ng/mL); THC CANNABINOIDS NEGATIVE (50 ng/mL); TRICYCLIC ANTIDEPRESSANTS NEGATIVE (300 ng/mL)
[2018-05-20 17:02] LABS: COMMENTS - BLOOD GASES C+; DEVICE NC; O2 FLOW 2 L/MIN; SITE RR
[2018-05-20 17:04] LABS: PCO2 64 mm Hg (35-45); PO2 85 mm Hg (80-100); pH 7.32 (7.35-7.45)
[2018-05-20 17:05] LABS: BASE EXCESS 5.4 mEq/L (-3 to +3); BICARBONATE 33 mEq/L (22-26); CARBOXY HGB 5 % (0-5); METHEMOGLOBIN 0.2 % (0-1.5); O2 SATURATION (CALCULATED) 99.4 % (95-99)
[2018-05-20] MEDS ORDERED: ENOXAPARIN150 MG/1 M SC (17:11)
[2018-05-20] MEDS ORDERED: ALEVE220 MG PO (17:13)
[2018-05-20] MEDS ORDERED: SINUS MED PO (17:14)
[2018-05-20 19:05] LABS: CONTINUOUS POS AIRWAY PRESSURE 5 cm H2O; DEVICE MASK/VENT; FI02 30 %; PRES. SUPPORT 10 CM/H2O; SITE RR
[2018-05-20 19:06] LABS: BASE EXCESS 6.5 mEq/L (-3 to +3); BICARBONATE 35.6 mEq/L (22-26); CARBOXY HGB 3.2 % (0-5); METHEMOGLOBIN 0.5 % (0-1.5); O2 SATURATION (CALCULATED) 97.9 % (95-99); PCO2 61 mm Hg (35-45); PO2 87 mm Hg (80-100); pH 7.35 (7.35-7.45)
[2018-05-20 21:05] VITALS: BP 137/83
[2018-05-21 00:05] VITALS: BP 124/79
[2018-05-21 03:55] VITALS: BP 130/79
[2018-05-21 06:01] LABS: HEMATOCRIT 34.5 % (36.0-46.0); HEMOGLOBIN 10.8 G/DL (11.9-15.5); MCH 27.6 PG (29.0-34.0); MCHC 31.3 G/DL (30.0-36.0); MCV 88.2 FL (83-99); PLATELET COUNT 367 K/uL (156-360); RBC DIS.WIDTH-CV 14.3 % (11.8-14.6); RED BLOOD COUNT 3.91 M/uL (3.80-5.20); WHITE BLOOD COUNT 8.7 K/uL (4.1-10.2)
[2018-05-21 06:27] LABS: CHLORIDE 100 MEQ/L (99-109); CREATININE 0.7 MG/DL (0.6-1.3); GFR ESTIMATE (CALCULATED) > 59 mL/min/; POTASSIUM 4.2 MEQ/L (3.7-5.4); SODIUM 139 MEQ/L (136-147); UREA NITROGEN (BUN) 8 mg/dL (9-23)
[2018-05-21 06:28] LABS: GLUCOSE 102 mg/dL (70-99)
[2018-05-21 07:59] VITALS: BP 145/88
[2018-05-21 12:00] VITALS: BP 154/93
[2018-05-21 17:52] VITALS: BP 139/74
[2018-05-21 20:04] VITALS: BP 144/77
[2018-05-22 00:22] VITALS: BP 149/85
[2018-05-22 04:23] VITALS: BP 134/73
[2018-05-22 05:37] LABS: HEMOGLOBIN 10.7 G/DL (11.9-15.5); MCH 27.2 PG (29.0-34.0); MCHC 30.6 G/DL (30.0-36.0); MCV 89.1 FL (83-99); PLATELET COUNT 365 K/uL (156-360); RBC DIS.WIDTH-CV 14.4 % (11.8-14.6); RBC DIS.WIDTH-SD 46.7 % (39-53); RED BLOOD COUNT 3.93 M/uL (3.80-5.20); WHITE BLOOD COUNT 9.1 K/uL (4.1-10.2)
[2018-05-22 06:01] LABS: CHLORIDE 101 MEQ/L (99-109); CREATININE 0.8 MG/DL (0.6-1.3); GFR ESTIMATE (CALCULATED) > 59 mL/min/; GLUCOSE 109 mg/dL (70-99); MAGNESIUM 1.9 mg/dl (1.3-2.7); POTASSIUM 3.9 MEQ/L (3.7-5.4); SODIUM 140 MEQ/L (136-147); UREA NITROGEN (BUN) 11 mg/dL (9-23)
[2018-05-22 08:44] VITALS: BP 141/76
[2018-05-22 12:03] VITALS: BP 131/78
[2018-05-22] MEDS ORDERED: CLONIDINE HCL0.1 MG PO (12:29)
[2018-05-22] MEDS ORDERED: STIOLTO RESPIMAT4 GM IH (12:29)
[2018-05-22 15:10] VITALS: BP 139/69
[2018-05-22] MEDS ORDERED: SYMBICORT60 INHALA1 IH (16:07)
== END 2018-05-22 18:15 | disposition home or self-care (01) | DRG 917 ==
LOC: EME → EDBD 12:27 → EDOF 19:52 → 4EAST 19:52 → ENRESERV 19:58 → 4EAST 21:23 → CANRESERV 05-21 12:12 → 4EAST 05-22 18:15
PROVIDERS: Emergency Medicine; Hospitalist; Internal Medicine
PROC: 5A09357 Assistance with Respiratory Ventilation, Less than 24 Consecutive Hours, Continuous Positive Airway Pressure (ICD-10-PCS; principal; 2018-05-20)
DX: T40.5X1A Poisoning by cocaine, accidental (unintentional), initial encounter (principal); J18.9 Pneumonia, unspecified organism; G93.1 Anoxic brain damage, not elsewhere classified; J96.01 Acute respiratory failure with hypoxia; J44.1 Chronic obstructive pulmonary disease with (acute) exacerbation; E87.2 Acidosis; I49.1 Atrial premature depolarization; G47.33 Obstructive sleep apnea (adult) (pediatric); Z91.19 Patient's noncompliance with other medical treatment and regimen; E66.01 Morbid (severe) obesity due to excess calories; D68.61 Antiphospholipid syndrome; K21.9 Gastro-esophageal reflux disease without esophagitis; K58.9 Irritable bowel syndrome, unspecified; K76.0 Fatty (change of) liver, not elsewhere classified; M06.9 Rheumatoid arthritis, unspecified; I10 Essential (primary) hypertension; D64.9 Anemia, unspecified; G43.909 Migraine, unspecified, not intractable, without status migrainosus; I25.10 Atherosclerotic heart disease of native coronary artery without angina pectoris; G89.29 Other chronic pain; K29.70 Gastritis, unspecified, without bleeding; F41.9 Anxiety disorder, unspecified; F32.9 Major depressive disorder, single episode, unspecified; F17.210 Nicotine dependence, cigarettes, uncomplicated; Z86.718 Personal history of other venous thrombosis and embolism; Z86.73 Personal history of transient ischemic attack (TIA), and cerebral infarction without residual deficits
CPT/HCPCS: 36600; 70450; 71046; 71275; 80048; 80053; 83735; 84484; 84702; 84999; 85025; 85027; 85610; 85730; 87040; 93005; 94640; 94660; 99281; 99285; G0480; J0456; J0696; J1650; J2310